=== PATIENT | male | born 1945 | race Caucasian/White ===

== ENCOUNTER 2018-03-03 09:01 | Emergency (ER) | payer MEDICARE ==
[~2018-03-03] VITALS: Ht 170.2 cm; Wt 81.6 kg
[~2018-03-03 09:01] MED LIST: CENTRUM SILVER1 EAC1 PO; LIPITOR80 MG PO; LISINOPRIL5 MG PO; METOPROLOL SUCC25 MG PO; PLAVIX75 MG PO; PREDNISONE10 MG PO; RANITIDINE HCL150 MG PO
[2018-03-03 10:08] VITALS: BP 151/94
== END 2018-03-03 10:14 | disposition home or self-care (01) ==
LOC: ER 09:09
DX: H11.31 Conjunctival hemorrhage, right eye (principal)
CPT/HCPCS: 99283

== ENCOUNTER 2019-07-13 11:27 | Emergency (ER) | payer MEDICARE ==
[~2019-07-13] VITALS: Ht 170.2 cm; Wt 81.6 kg
--- NOTE | 2019-07-13 12:10 | Diagnostic Imaging Report ---
EXAMINATION: CHEST 2 VIEWS INDICATION: Cough. COMPARISON: None FINDINGS: TUBES and LINES: None. LUNGS: Lungs are well inflated. There is no evidence of lobar pneumonia or pulmonary edema. There is a 1.4 cm nodular opacity in the left midlung. Biapical pleural-parenchymal opacity, suggestive of prior granulomatous disease. PLEURA: No pleural effusion or pneumothorax. HEART AND MEDIASTINUM: The cardiomediastinal silhouette is unremarkable. BONES AND SOFT TISSUES: No acute osseous abnormality. UPPER ABDOMEN: No free air under the diaphragm. IMPRESSION: A 1.4 cm nodular opacity in the left midlung. CT is recommended for further evaluation. No evidence of lobar pneumonia. Signed by: Dr. Katharine Sanchez MD on 07/13/2019 12:07 PM
[2019-07-13 12:23] LABS: INFLUENZAE A&B ANTIGEN (RAPID) NEGATIVE (NEGATIVE); STREPTOCOCCUS GRP A ANTIGEN POSITIVE (NEGATIVE)
== END 2019-07-13 13:24 | disposition home or self-care (01) ==
LOC: ER 11:27
DX: R50.9 Fever, unspecified (principal); R05 Cough; J02.0 Streptococcal pharyngitis
CPT/HCPCS: 71046; 83518; 87400; 99284